=== PATIENT | male | born 1990 | race Caucasian/White ===

== ENCOUNTER 2018-06-10 14:37 | Emergency (ER) | payer BC, MEDICAID ==
[~2018-06-10] VITALS: Ht 167.6 cm; Wt 117.8 kg
[2018-06-10 14:41] VITALS: Ht 167.6 cm; Wt 117.8 kg
[2018-06-10] MEDS ORDERED: KETOROLAC 60 MG INJ IM STA (16:42)
[2018-06-10] MEDS ORDERED: METHYLPREDNISOLONE ACET 80 MG/ML 1 ML IM ONE (17:00)
[2018-06-10] MEDS ORDERED: CYCLOBENZAPRINE 10 MG TAB PO ONE (17:00)
[2018-06-10] MEDS ORDERED: DEXAMETHASONE 10 MG/ML 1 ML INJ IM ONE (17:00)
[2018-06-10] MEDS ORDERED: HYDROCODONE/APAP (10/325) TAB PO ONE (18:00)
--- NOTE | 2018-06-10 18:04 | ERD ---
ER Documentation Chief Complaint Chief Complaint Complains of severe back pain after a basketball game yesterday HPI 28-year-old male coming in today with Chief Complaint: Back pain History of Present Illness: Patient reporting back pain since yesterday after playing basketball. Patient reports they were playing basketball "hard "and he reports jumping tissue to basketball, and reports when coming down he twisted his back and landed hard; patient denies falling to ground but reports hearing a pop in back. Patient reports decreased ability to walk due to severe pain. Patient reports mother gave him a Vicodin at home last night to help with pain but pain has persisted since then. Patient reports no loss of bowel or bladder, no decreased sensation, no paralysis. Patient denies any other associated symptoms. Patient denies any other use of medications at home on symptoms or for nonpharmacological treatments. Past Medical History: Negative for hypertension, diabetes or other medical problems Social History: Patient reports tobacco use, alcohol use socially, and marijuana use occasionally last use March Medications: None Allergies: NKDA Social Concerns: Denies ROS All systems reviewed and are negative except as per history of present illness. Medications Home Meds Active Scripts Naproxen* (Naprosyn*) 500 Mg Tablet, 500 MG PO BID PRN for PAIN AND/OR INFLAMMATION, #30 TAB Prov:DOUG ZHANG V FEATHER SEPARATOR 06/10/18 Hydrocodone/Acetaminophen (Baring 5-325 Tablet) 1 Each Tablet, 1 TAB PO Q6H PRN for PAIN, #7 TAB Prov:DOUG ZHANG V FEATHER SEPARATOR 06/10/18 Allergies Allergies: Coded Allergies: No Known Drug Allergy (Verified Allergy, Mild, 04/25/09) PMhx/Soc History of Surgery: No Hx Neurological Disorder: No Hx Respiratory Disorders: No Hx Cardiac Disorders: No Hx Miscellaneous Medical Probl: Yes (2ND INCIDENT OF LEFT SHOULDER DISLOCATION) Hx Alcohol Use: No Hx Substance Use: No Hx Tobacco Use: No FmHx Family History: No diabetes, No coronary disease Physical Exam Vitals Vital Signs Date Temp Pulse Resp B/P (MAP) Pulse Ox O2 O2 Flow FiO2 Time Delivery Rate 06/10/18 97.7 67 18 134/75 99 Room Air 19:08 (94) 06/10/18 98.3 89 20 154/71 99 14:41 (98) Physical Exam Const: No acute distress Head: Atraumatic Eyes: Normal Conjunctiva ENT: Normal External Ears, Nose and Mouth. Neck: Full range of motion. No meningismus. Resp: Clear to auscultation bilaterally Cardio: Regular rate and rhythm, no murmurs Abd: Soft, non tender, non distended. Normal bowel sounds Skin: No petechiae or rashes Back: No midline or flank tenderness Ext: No cyanosis, or edema Neur: Awake and alert Psych: Normal Mood and Affect Results 24 hrs Current Medications Medications Dose Sig/Elaine Start Time Status Last (Trade) Ordered Route PRN Stop Time Admin Dose Reason Admin Ketorolac 60 mg ONCE STAT 06/10/18 DC 06/10/18 Tromethamine IM 16:42 17:01 (Toradol) 06/10/18 16:45 80 mg ONCE ONCE 06/10/18 DC 06/10/18 Methylprednis IM 17:00 17:18 olone 06/10/18 17:01 Acetate (Depo-Medrol 80 Mg/ml 1 ml) 8 mg ONCE ONCE 06/10/18 DC 06/10/18 Dexamethasone IM 17:00 17:18 (Decadron) 06/10/18 17:01 10 mg ONCE ONCE 06/10/18 DC 06/10/18 Cyclobenzapri PO 17:00 17:01 ne HCl 06/10/18 17:01 (Flexeril) 1 tab ONCE ONCE 06/10/18 DC 06/10/18 Acetaminophen PO 18:00 18:18 / 06/10/18 18:02 Hydrocodone Bitart (Baring (10/325)) Procedures/MDM ED course includes a thorough examination and history. ED course includes medication; methylprednisolone and dexamethasone for inflammation, Ketorolac for inflammation and pain cyclobenzaprine for muscle spasms. ED course includes imaging; lumbar x-ray due to possible traumatic injury. Patient reassessment at 1755: pain decreased from 10 to 8. Due to x-ray results and patient report of pain assessment, will order a one-time dose of Baring. Low suspicion for life-threatening medical emergency or neurological emergency t hat requires hospitalization Otherwise healthy patient presenting with constellation of symptoms likely representing back pain related to injury, possible compression fracture at L1 as characterized by history, physical exam findings radiologic. Lumbar x-ray impression: IMPRESSION: Mild vertebral enthesopathy. Mild compression deformity of the superior anterior endplate of L1, may represent a mild compression fracture, age indeterminate. Patient reassessment at 1858: Patient reporting relief of pain from 8-7 currently. Offered IM morphine, patient declined and states he just wants to go home. Patient appears restless and walking around without difficulty. No changes in condition. No respiratory distress, otherwise relatively well appearing and nontoxic. Patient educated on diagnoses, prescriptions, follow-up care, return precautions. Strict return precautions given for worsening condition; questions answered discharge. Disposition for discharge with followup in 2-3 days with PCP/clinic for further evaluation and possible referral. Patient also requesting work note, will give work note for 1 week so patient can establish care with primary care doctor and/or referrals if needed. Departure Diagnosis: Primary Impression: Back pain Condition: Stable DOUG ZHANG NP Jun 10, 2018 18:04 MARTÍN GUTIERREZ DO Jun 12, 2018 10:54
[2018-06-10] MEDS ORDERED: NAPR-985 PO (18:48)
[2018-06-10] MEDS ORDERED: HYDR-4011 PO (18:48)
[2018-06-10 19:08] VITALS: BP 134/75; PULSE 67; RESP 18
== END 2018-06-10 19:10 | disposition home or self-care (01) ==
LOC: FTE 14:37
DX: M54.9 Dorsalgia, unspecified (principal)
CPT/HCPCS: 72100; 96372; 99284; J1040; J1100; J1885; Z7610